=== PATIENT | female | born 1955 | race Caucasian/White ===

== ENCOUNTER 2022-11-05 07:34 | Outpatient (CLI) | payer MEDICARE, OTHER ==
[2022-11-05] MEDS ORDERED: Iopamidol 300 61% 100 ML VIAL FS ONE (09:27)
== END 2022-11-05 07:35 | disposition home or self-care (01) ==
LOC: CSHCT 07:34
PROVIDERS: ATTEND Physician Assistant
DX: K11.8 Other diseases of salivary glands (principal); K11.1 Hypertrophy of salivary gland
CPT/HCPCS: 70491; 82565; Q9967